=== PATIENT | female | born 1945 | race Caucasian/White ===

== ENCOUNTER → 2016-08-30 | Outpatient (CLI) | payer MEDICARE, OTHER ==
[~2016-08-30] MED LIST: ACETAMINOPHEN500 M2 PO; ACIDOPHILUS PR1 EACH PO; ACIDOPHILUS1 CA1 PO; ADVIL200 M2 PO; ALLERGY RELIEF10 M1 PO; ALPRAZOLAM0.25 MG PO; ASPIRIN PO; ASPIRIN81 MG PO; CALCIUM; CIPRO PO; CLARITIN10 M2 PO; COLACE PO; DEMEROL50 MG PO; LORTAB 7.5-5001 TAB PO; LOSARTAN POTASS50 MG PO; MEPERITAB50 MG PO; METOPROLOL TAR25 MG PO; NASAL SPRAY; NON-ASPIRIN PA500 M1 PO; PROBIOTIC1 EACH PO; TYLENOL ARTHRITIS; TYLENOL325 M1 PO; WAL-PROFEN200 M1 PO
--- NOTE | ~2016-08-30 | MR113 ---
[facility] A Service of [facility] & [facility] RADIOLOGY TEXT RESULTS PATIENT: CONSTANZA PENNY LOCATION: [facility] : 47 UNIT #: [id number] AGE: [address]: Leelee Lutz MD SEX: F ORDER DR: [id number] [facility] [address] [place], [place] [address] [id number] O MR#: [id number] Acc #: [id number] NAME: CONSTANZA PENNY : 1945 SEX: F STUDY DATE/TIME: 08/30/2016 10:19 UNIT: [facility] ROOM: STUDY DESCRIPTION: MR Lumbar Wo Contrast Attending Physician: Leelee Lutz M.D. Ordering Physician: Leelee Lutz M.D. Primary Care Physician: Leelee Lutz M.D. MRI CENTER REPORT This report is preliminary unless electronic signature is present. EXAM MRI lumbar spine without contrast, 08/30/2016 COMPARISON Plain films of the lumbar spine dated 03/10/2016. HISTORY Low back pain for 25 years. Increasing back pain, right leg pain for 2 years. Patient walks with a cane. Right leg does not hurt as bad when using her cane. FINDINGS Multisequence, multiplanar imaging of the lumbar spine was obtained without contrast. Vertebral body heights and alignment are preserved. Degenerative disc disease is at multiple levels. The conus terminates at T12-L1. Signal of conus and cauda equina appear to be grossly unremarkable. Pre and paravertebral soft tissues in the retroperitoneum are unremarkable. L1-2: Mild disc bulb with mild bilateral facet change. No canal stenosis or neural foraminal narrowing. L2-3: Concentric disc bulge with mild bilateral facet change. No canal stenosis or neural foraminal narrowing. L3-4: Moderate disc bulge with moderate bilateral facet hypertrophic changes and bilateral moderate ligamentum flavum thickening. Mild to moderate canal stenosis is seen with no significant neural foraminal narrowing. L4-5: Concentric disc bulge with mild bilateral facet change. Moderate canal stenosis is seen with mild inferior bilateral neural foraminal narrowing. [facility] A Service of [facility] & [facility] RADIOLOGY TEXT RESULTS PATIENT: CONSTANZA PENNY LOCATION: [facility] : 47 UNIT #: [id number] AGE: [address]: Leelee Lutz MD SEX: F ORDER DR: L5-S1: Disc osteophyte complex with mild bilateral facet hypertrophic changes. Mild to moderate neural foraminal narrowing is seen with borderline size canal and mild bilateral lateral recess stenosis, worse on the left. IMPRESSION 1. Degenerative changes are noted at multiple levels as described above. 2. It is relatively worse in the lower lumbar spine with canal stenosis at L3-4 and to a lesser degree at L4-5. 3. Bilateral L5-S1 neural foraminal narrowing is seen with bilateral mild lateral recess stenosis and impingement of bilateral S1 nerve roots. Dictated by... Beba Crenshaw M.D. THIS IS AN ELECTRONICALLY VERIFIED REPORT Beba Crenshaw M.D. at 09/01/2016 1:16 PM CPR/luigi TD: 08/30/2016 21:46 JOB #: [id number] MRI CENTER REPORT COPY
== END | disposition home or self-care (01) ==
LOC: CMRI 09:38
DX: M51.36 Other intervertebral disc degeneration, lumbar region (principal); M47.816 Spondylosis without myelopathy or radiculopathy, lumbar region; M48.06 Spinal stenosis, lumbar region
CPT/HCPCS: 72148